=== PATIENT | female | born 1945 | race Caucasian/White ===

== ENCOUNTER 2019-08-30 09:31 | Inpatient (IN) | payer BC ==
[2019-08-15 12:32] VITALS: BMI 39.2
--- NOTE | 2019-08-30 07:58 | HP ---
Satellite [facility] - Chief Complaint Chief Complaint: right knee pain - Past Medical History Allergies/Adverse Reactions: Allergies Allergy/AdvReac Type Severity Reaction Status Date / Time Penicillins Allergy Severe Difficulty Verified 08/15/19 12:20 Breathing - Current Medications Current Medications: Home Medications Medication Instructions Recorded Aspirin [ASA -] 81 mg PO DAILY 08/15/19 Cholecalciferol (Vitamin D3) 2,000 unit PO DAILY 08/15/19 [Vitamin D3] Hydrochlorothiazide [Hctz -] 12.5 mg PO DAILY 08/15/19 Metoprolol Succinate [Toprol Xl -] 50 mg PO DAILY 08/15/19 Potassium Chloride [Klor-Con M20] 20 meq PO DAILY 08/15/19 Satellite Physical Exam - Physical Examination General Appearance: Well Nourished, Well Developed, Alert & Oriented x3 ENT: Clear Lung: Normal air movement Extremities: Other (right knee- + swelling, + ttp ,decr rom, nvi, xrays show grade 4 tricompartmental djd) Neurological: Intact, Alert, Oriented Satellite Impression/Plan - Impression/Plan Impression: right knee djd Operative Procedure: right jose tkr Date to be Performed: 08/30/19
[~2019-08-30 09:31] MED LIST: VANCOMYCIN 1,000 MG VIAL (RESTRICTED TO ID ONLY) IVPB ONE
[2019-08-30] MEDS ORDERED: BUPIVACAINE HCL/PF 0.5% (5MG/ML) 10 ML VIAL ONE ×2 (09:45→12:57)
[2019-08-30] MEDS ORDERED: CEFAZOLIN 3 GM in DEXTROSE 5%-WATER - 100 ML IVPB ONE (10:15)
[2019-08-30] MEDS ORDERED: CELECOXIB 200 MG CAPSULE PO ONE (10:15)
[2019-08-30] MEDS ORDERED: TRANEXAMIC ACID 1000 MG/10 ML VIAL IVPUSH ONE (10:15)
[2019-08-30] MEDS ORDERED: CELECOXIB 200 MG CAPSULE ONE (10:56)
[2019-08-30] MEDS ORDERED: ceFAZolin SODIUM 1 GM VIAL ONE ×2 (11:39→12:15)
[2019-08-30] MEDS ORDERED: SODIUM CHLORIDE 0.9% P/F 10 ML VIAL IJ ONE (11:43)
[2019-08-30] MEDS ORDERED: MIDAZOLAM HCL 2 MG/2 ML SINGLE DOSE VIAL ONE (11:43)
[2019-08-30] MEDS ORDERED: BUPIVACAINE LIPOSOME/PF (EXPAREL) 266 MG/20 ML VIAL ONE (11:43)
[2019-08-30] MEDS ORDERED: VANCOMYCIN 1,000 MG VIAL (RESTRICTED TO ID ONLY) ONE ×2 (12:15→14:48)
[2019-08-30] MEDS ORDERED: MAGNESIUM HYDROX 2400MG/30ML ORAL SUSPENSION 30 ML CUP PO PRN (13:00)
[2019-08-30] MEDS ORDERED: ONDANSETRON 4 MG/2 ML VIAL IVPUSH PRN (13:00)
[2019-08-30] MEDS ORDERED: MAG HYDROX/AL HYDROX/SIMETH 30 ML UNIT-DOSE CUP PO PRN (13:00)
[2019-08-30] MEDS ORDERED: LACTATED RINGERS SOLUTION 1,000 ML IV SCH (13:00)
[2019-08-30] MEDS ORDERED: TRANEXAMIC ACID 1000 MG/10 ML VIAL ONE (13:16)
[2019-08-30] MEDS ORDERED: PROPOFOL 20 ML ONE ×2 (13:18)
[2019-08-30] MEDS ORDERED: VANCOMYCIN 1,000 MG VIAL (RESTRICTED TO ID ONLY) IVPB ONE (14:50)
--- NOTE | 2019-08-30 15:23 | OP ---
Operative Note - Note: Operative Date: 08/30/19 (amelia) Pre-Operative Diagnosis: right knee djd Operation: right jose tkr Post-Operative Diagnosis: Same as Pre-op Surgeon: Erich Sanford Set Up Mechanic Heading Machines: Michael Henderson Anesthesiologist/RESERVOIR CARETAKER: Kota Owusu Anesthesia: Spinal, Local Specimens Removed: bone fragments Estimated Blood Loss (mls): 250
[2019-08-30] MEDS ORDERED: oxyCODONE HCL 5 MG TABLET PO PRN (16:10)
--- NOTE | 2019-08-30 17:10 | SPEC ---
DATE OF OPERATION: 08/30/2019 PREOPERATIVE DIAGNOSIS: Degenerative joint disease, right knee. POSTOPERATIVE DIAGNOSIS: Degenerative joint disease, right knee. PROCEDURE: Right total knee replacement with robotic-assisted navigation (Makoplasty). SURGICAL ATTENDING: Erich Sanford MD. SOLE TRIMMER: MAGGIE Zhang. ANESTHESIA: Regional and spinal. CLOSURE: A cemented total knee system with a 3 femur, 4 tibia, 11 TS polyethylene, 32 patella, number 1 Vicryl fascia, 0 and 2-0 subcutaneous, 3-0 Monocryl subcuticular with skin glue for skin, 4-0 undyed Vicryl for pin site. ESTIMATED BLOOD LOSS: Less than . COMPLICATIONS: None. CONDITION: To recovery room in stable condition. DESCRIPTION OF OPERATIVE PROCEDURE: Patient was taken to the operating room on August 30, 2019. Regional and general anesthesia was administered by the anesthesiologist. IV Kefzol and TXA were administered by the anesthesiologist. Well-padded pneumatic tourniquet was placed on the proximal thigh. The right lower extremity was prepped and draped in the usual sterile fashion. The leg was exsanguinated with an Esmarch bandage, and tourniquet was inflated to 275 mmHg. A 12 to 15-cm longitudinal midline incision was incised while centered over the patella. The dissection was carried down to the level of the extensor mechanism with sufficient flaps made to adequately perform the procedure. A medial parapatellar arthrotomy was then performed. We made a cuff of tissue on the patella for later closure. The patella was inverted, the knee was flexed up. The fat pad was excised. The subperiosteal dissection was on the anteromedial proximal tibia around towards the direction of the MCL. The ACL and the PCL were transected and debrided. The meniscal remnants of the medial and lateral meniscus were debrided and removed. This allowed the knee to be able to "be brought forward." The checkpoints were malleted into the tibia and into the femur. Two threaded pins were drilled anteroposteriorly proximal to the knee through the previous incision, through the anterior cortex, then just engaging the posterior cortex. To these pins was assembled the femoral navigation array. One handbreadth below the tibial tubercle, 2 stab incisions were used to drill 2 threaded pins in parallel fashion into the tibia, again through the anterior cortex and just engaging the posterior cortex. To these pins was fastened the tibial arrays. The knee was then registered with the navigation device with center of rotation of the hip, medial and lateral malleoli, both checkpoints, and multiple points on both the femur and the tibia to ensure excellent registration. The navigation device was directed off the "top of the bubbles" on both the femur and the tibia. The navigation passed within less than 0.5 mm to plan. The knee was then thoroughly inspected to remove all osteophytes both medially, laterally, and on the femur and the tibia, and whatever osteophytes were available for dissection. The knee was then taken to extension and to flexion, and stressed in both varus and valgus to assess flexion gaps. The virtual position of the components on the navigation device were then manipulated to optimize the position and to ensure equal gaps in both flexion and extension, and both medially and laterally. The robot was then brought into the field and was registered. The cuts were then made both on the femur and on the tibia as to plan. All osteophytes posteriorly were then removed as well. The gaps were then measured again in flexion and extension to be equal in both flexion and extension and medial and laterally. The femoral notch was then made, as we were doing a posterior stabilizing component, with the appropriate sized box. Trial reduction of the femur achieved excellent [id number] fit. A tibial baseplate of appropriate polyethylene thickness was "floated in the knee." It was ensured to be in the excellent position by navigation devices and was pinned in place. The knee was taken through a range of motion, and found to have excellent stability throughout flexion and extension. The patella was calibrated for thickness and osteotomized down to the appropriate level. The appropriate lollipop was used to drill the lug holes in the patella and the trial button was applied. The knee was taken through a range of motion and found to have excellent tracking of the patella, and patella from full extension to full flexion. Trial components were removed, the keel was punched and drilled, and a sclerotic bone on the tibia was drilled to help with cement interdigitation. The knee was thoroughly irrigated with the pulse antibiotic plant changer. The real components were then cemented in using monitored arrangement cement techniques with antibiotic cement, and pressurization and extension. After the cement was hardened, the knee was thoroughly inspected to remove any extra cement. The real polyethylene component was then clipped into place. Range of motion, stability, and tracking were as described earlier. The checkpoints and the pins were removed. The knee was thoroughly irrigated with antibiotic irrigation. Vancomycin powder was placed into the knee for antibiotic prophylaxis. The medial parapatellar arthrotomy was then closed using number 1 Vicryl interrupted suture. After closure of the deep layer, the knee was taken through a range of motion, and found to have excellent stability of the patella with no dislocation and no undue tension on the repair. The subcutaneous was pulse antibiotic irrigated, and was then closed with 2-0 Vicryl, 3-0 Monocryl subcuticular with the skin glue for the skin. The distal tibial pin site was irrigated thoroughly as well and then closed with 4-0 undyed Vicryl. A sterile Aquacel dressing was applied, followed by a Resendiz dressing. Tourniquet was deflated. Total tourniquet time was approximately 75 minutes. No complications. Patient was awakened from anesthesia and transferred to recovery room in stable condition. Postoperative x-rays revealed excellent position of the components. Laron [id number]
[2019-08-30] MEDS: oxyCODONE HCL 5 MG TABLET PO PRN (19:20)
[2019-08-30] MEDS: SENNOSIDES/DOCUSATE COMBO (SENNA PLUS) TABLET (UD) PO SCH (21:10)
[2019-08-30] MEDS: CEFAZOLIN 3 GM in DEXTROSE 5%-WATER - 100 ML IVPB SCH (21:10)
[2019-08-30] MEDS: ACETAMINOPHEN 325 MG TABLET (FP) PO PRN (21:11)
[2019-08-30] MEDS: KETOROLAC TROMETHAMINE 30 MG/1 ML VIAL IVPUSH PRN (23:03)
[2019-08-31] MEDS: CEFAZOLIN 3 GM in DEXTROSE 5%-WATER - 100 ML IVPB SCH (03:35)
[2019-08-31] MEDS: oxyCODONE HCL 5 MG TABLET PO PRN ×5 (05:16→21:44)
--- NOTE | 2019-08-31 07:18 | CONSULT ---
Consult - Past Medical History Cardio/Vascular: Yes: HTN. No: AFIB Pulmonary: No: Asthma Gastrointestinal: Yes: GERD - Alcohol/Substance Use Hx Alcohol Use: No (OCCASIONALLY) - Smoking History Smoking history: Never smoked Have you smoked in the past 12 months: No Home Medications - Allergies Allergies/Adverse Reactions: Allergies Allergy/AdvReac Type Severity Reaction Status Date / Time Penicillins Allergy Severe Difficulty Verified 08/15/19 12:20 Breathing - Home Medications Home Medications: Ambulatory Orders Aspirin [ASA -] 81 mg PO DAILY 08/15/19 Cholecalciferol (Vitamin D3) [Vitamin D3] 2,000 unit PO DAILY 08/15/19 Hydrochlorothiazide [Hctz -] 12.5 mg PO DAILY 08/15/19 Metoprolol Succinate [Toprol Xl -] 50 mg PO DAILY 08/15/19 Potassium Chloride [Klor-Con M20] 20 meq PO DAILY 08/15/19 Review of Systems - Review of Systems Cardiovascular: reports: No Symptoms Respiratory: reports: No Symptoms Gastrointestinal: reports: No Symptoms Musculoskeletal: reports: Extremity Pain, Joint Pain Physical Exam Vital Signs: Vital Signs Temperature 97.5 F L 08/31/19 06:00 Pulse Rate 72 08/31/19 06:00 Respiratory Rate 20 08/31/19 06:00 Blood Pressure 147/65 08/31/19 06:00 O2 Sat by Pulse Oximetry (%) 95 08/31/19 07:07 Cardiovascular: Yes: S1, S2 Respiratory: Yes: Regular, CTA Bilaterally Gastrointestinal: Yes: Normal Bowel Sounds, Soft. No: Tenderness Musculoskeletal: Yes: Joint Stiffness, Joint Swelling Wound/Incision: Yes: Dressing Dry and Intact Problem List - Problems (1) HTN (hypertension) Assessment/Plan: metoprolol and hctz monitor Code(s): I10 - ESSENTIAL (PRIMARY) HYPERTENSION (2) S/P knee replacement Assessment/Plan: Operative Date: 08/30/19 (amelia) Pre-Operative Diagnosis: right knee djd Operation: right jose tkr Post-Operative Diagnosis: Same as Pre-op Surgeon: Erihc Sanford Code(s): Z96.659 - PRESENCE OF UNSPECIFIED ARTIFICIAL KNEE JOINT
[2019-08-31] MEDS: ASPIRIN 325 MG TABLET PO SCH (08:05)
[2019-08-31 08:11] LABS: HEMATOCRIT 34.8 % (32.4-45.2); HEMOGLOBIN 11.7 GM/dl (10.7-15.3); MCHC 33.6 g/dl (32.0-36.0); MEAN CELL VOLUME 92.1 fl (80-96); MEAN PLT VOLUME 10.8 fl (7.5-11.1); PLATELET COUNT 187 K/MM3 (134-434); RBC 3.78 M/mm3 (3.60-5.2); WHITE BLOOD COUNT 10.4 K/mm3 (4.0-10.8)
[2019-08-31] MEDS: KETOROLAC TROMETHAMINE 30 MG/1 ML VIAL IVPUSH PRN (08:35)
--- NOTE | 2019-08-31 08:37 | PN ---
Progress Note (short form) - Note Progress Note: Ortho Pt seen and examined s/p right jose tkr pod #1. c/o pain in right knee. Selected Entries 08/31/19 06:00 Temperature 97.5 F L Pulse Rate 72 Respiratory 20 Rate Blood Pressure 147/65 Laboratory Tests 08/31/19 07:35 WBC 10.4 Hgb 11.7 Hct 34.8 Plt Count 187 dressing c/d/i, calf soft, nt rom 0-20, nvi a/p PT dvt ppx pain control d/c planning
[2019-08-31] MEDS: MULTIVITAMINS (DAILY MVI) TABLET (FP) PO SCH (09:24)
[2019-08-31] MEDS: SENNOSIDES/DOCUSATE COMBO (SENNA PLUS) TABLET (UD) PO SCH ×2 (09:24→21:44)
[2019-08-31] MEDS: POTASSIUM CHLORIDE TABS 20 MEQ TABLET.ER (FP) PO SCH (09:24)
[2019-08-31] MEDS: PANTOPRAZOLE 40 MG TABLET (FP) PO SCH (09:43)
[2019-08-31] MEDS: HYDROCHLOROTHIAZIDE 12.5 MG CAPSULE (FP) PO SCH (09:43)
--- NOTE | 2019-08-31 12:27 | PN ---
Progress Note (short form) - Note Progress Note: ANESTHESIA POSTOP 74 YO FEMALE POD #1 S/P RIGHT TKA Patient sitting in chair. Pain tolerable with medications. Tolerating PO VSS, Afebrile Continue current care. Encouraged active participation in PT and use of IS. No anesthetic complications.
[2019-09-01] MEDS: oxyCODONE HCL 5 MG TABLET PO PRN (03:47)
[2019-09-01] MEDS: KETOROLAC TROMETHAMINE 30 MG/1 ML VIAL IVPUSH PRN ×2 (06:30→09:00)
[2019-09-01] MEDS: ACETAMINOPHEN 325 MG TABLET (FP) PO PRN (06:31)
[2019-09-01] MEDS: ASPIRIN 325 MG TABLET PO SCH (08:19)
[2019-09-01 08:23] LABS: HEMOGLOBIN 11.6 GM/dl (10.7-15.3); MCH 31.1 pg (25.7-33.7); MEAN CELL VOLUME 91.4 fl (80-96); MEAN PLT VOLUME 11.1 fl (7.5-11.1); PLATELET COUNT 199 K/MM3 (134-434); RBC 3.72 M/mm3 (3.60-5.2); RDW 11.9 % (11.6-15.6)
[2019-09-01 08:24] LABS: ALBUMIN 2.8 g/dl (3.4-5.0); CALCIUM 8.7 mg/dl (8.5-10); CREATININE 0.6 mg/dl (0.55-1.3); POTASSIUM 3.7 mmol/L (3.5-5.1); TOT PROT 5.9 g/dl (6.4-8.2)
--- NOTE | 2019-09-01 08:38 | PN ---
Progress Note (short form) - Note Progress Note: Ortho Pt seen and examined s/p right jose tkr pod #2. c/o pain in right knee. Hesitant to move due to the pain. Selected Entries 09/01/19 06:00 Temperature 99.4 F Pulse Rate 90 Respiratory 20 Rate Blood Pressure 148/62 Laboratory Tests 09/01/19 07:34 WBC 10.0 Hgb 11.6 Hct 34.0 Plt Count 199 dressing c/d/i, calf soft, nt rom 0-20, nvi a/p Encouraged pt importance of ROM and PT PT dvt ppx pain control d/c planning to rehab
[2019-09-01] MEDS: MULTIVITAMINS (DAILY MVI) TABLET (FP) PO SCH (09:00)
[2019-09-01] MEDS: SENNOSIDES/DOCUSATE COMBO (SENNA PLUS) TABLET (UD) PO SCH (09:00)
[2019-09-01] MEDS: POTASSIUM CHLORIDE TABS 20 MEQ TABLET.ER (FP) PO SCH (09:00)
[2019-09-01] MEDS: PANTOPRAZOLE 40 MG TABLET (FP) PO SCH (09:00)
[2019-09-01] MEDS: HYDROCHLOROTHIAZIDE 12.5 MG CAPSULE (FP) PO SCH (09:00)
--- NOTE | 2019-09-01 10:56 | DS ---
Physical Examination Vital Signs: Vital Signs Temperature 99.4 F 09/01/19 06:00 Pulse Rate 90 09/01/19 06:00 Respiratory Rate 20 09/01/19 06:00 Blood Pressure 148/62 09/01/19 06:00 O2 Sat by Pulse Oximetry (%) 93 L 09/01/19 06:00 Labs: CBC, BMP 09/01/19 07:34 09/01/19 07:34 Discharge Summary Problems reviewed: Yes Reason For Visit: OSTEOARTHRITIS Current Active Problems HTN (hypertension) (Acute) S/P knee replacement (Acute) Procedures: Principal: right tkr Hospital Course: admitted for elective right jose tkr, post-op per protocol, stable for d/c Condition: Good - Instructions Diet, Activity, Other Instructions: Post-op Instructions-Total Knee Replacement Call the office for a follow-up appointment in 1 week - [phone] Aspirin 325mg daily for 6 weeks. Pain medication was sent into your pharmacy. Apply Graduated Compression Stockings (TEDs) to both lower extremities- remove daily for hygiene ONLY Apply Sequential Compression Device (SCDs) to both Lower extremities remove for PT and hygiene ONLY Apply cold packs to affected area for 15 minutes every 2 hours. Physical Therapist will come to your home for the first 5 days. You will be set up with outpatient PT at your first post-operative visit. Patient may ambulate as tolerated-encourage self care (at least every 2-3 hours while awake) with walker or cane Maintain Aquacel (waterproof) dressing to operative wound (will be removed by surgeon at first office visit) Shower with Aquacel dressing in place-if Aquacel integrity compromised, remove and apply dry sterile dressing and notify Orthopedist. DO NOT SHOWER unless Orthopedists approves without Aquacel dressing CONTACT THE OFFICE FOR ANY CHANGE IN YOUR CONDITION (for example-fever greater than 102 degrees, excessive bleeding from operative site, purulent drainage, severe swelling or pain) GO TO THE EMERGENCY ROOM IF THERE IS A MEDICAL EMERGENCY Knee Precautions: * Keep a rolled towel under affected heel while in bed or chair (to keep knee in extension) * Keep affected leg elevated except during mealtimes * DO NOT PLACE PILLOW UNDER AFFECTED KNEE * If you have any questions, please do not hesitate to call the office - [phone]. Referrals: Erich Sanford MD [Staff Physician] - - Home Medications Comprehensive Discharge Medication List: Ambulatory Orders Cholecalciferol (Vitamin D3) [Vitamin D3] 2,000 unit PO DAILY 08/15/19 Hydrochlorothiazide [Hctz -] 12.5 mg PO DAILY 08/15/19 Metoprolol Succinate [Toprol XL -] 50 mg PO DAILY 08/15/19 Potassium Chloride [Klor-Con M20] 20 meq PO DAILY 08/15/19 Aspirin [ASA -] 325 mg PO DAILY@0800 tablet 09/01/19 oxyCODONE HCL [Roxicodone -] 5 mg PO Q4H PRN tablet MDD 8 09/01/19
[2019-09-01 11:58] VITALS: BP 118/50; PULSE 73; TEMP 97.7
--- NOTE | 2019-09-02 16:38 | PATH ---
Surgical Pathology Report Patient Name: RENY FERGUSON Med. Rec. #: [id number] /Age/Gender: 1945 (Age: 74) / F Account: [id number] Location: [facility] MED-SURG Taken: 08/30/2019 Received: 08/30/2019 Reported: 09/02/2019 Physicians: Erich Sanford M.D. Specimen(s) Received RIGHT KNEE BONES Clinical History Osteoarthritis right knee Final Diagnosis RIGHT KNEE BONES, RESECTION: DEGENERATIVE JOINT DISEASE, RIGHT KNEE. Electronically Signed Justin Ward M.D. Gross Description Received in formalin labeled "right knee bones," is an 11.0 x 8.5 x 1.8 cm aggregate of multiple saldivar-yellow, irregular portions of bone and soft tissue. The tibial plateau is 8.0 x 5.3 x 1.7 cm. There are areas of eburnation identified. The articular surfaces are saldivar-brown and diffusely granular. The underlying trabecular bone is yellow and hard. Banding Machine Operator sections are submitted in one cassette, following decalcification. /09/01/2019 [facility]09/01/2019
== END 2019-09-01 12:50 | DRG 470 ==
LOC: FASUSAT 09:31 → FM/S 16:49 → FASUSAT 08-31 09:27
PROVIDERS: ADMIT Orthopaedic Surgery; ATTEND Orthopaedic Surgery
PROC: 8E0Y0CZ Robotic Assisted Procedure of Lower Extremity, Open Approach (ICD-10-PCS; 2019-08-30)
PROC: 0SRC069 Replacement of Right Knee Joint with Oxidized Zirconium on Polyethylene Synthetic Substitute, Cemented, Open Approach (ICD-10-PCS; principal; 2019-08-30 13:31)
DX: M17.11 Unilateral primary osteoarthritis, right knee (principal); I10 Essential (primary) hypertension; K21.9 Gastro-esophageal reflux disease without esophagitis
CPT/HCPCS: 36415; 73560-TC-RT-FY; 80053; 80061; 83036; 85027; 88304-TC; 88311-TC; 94760; 97116-GP; 97163-GP

== ENCOUNTER 2021-06-18 09:16 | Day surgery (SDC) | payer BC ==
[2021-06-11 09:58] VITALS: BMI 39.7
[2021-06-18] MEDS ORDERED: TRANEXAMIC ACID 1000 MG/10 ML VIAL IVPUSH ONE (10:01)
[2021-06-18] MEDS ORDERED: CELECOXIB 200 MG CAPSULE PO ONE (10:01)
[2021-06-18] MEDS ORDERED: CEFAZOLIN 2 GM in DEXTROSE 5%-WATER - 50 ML IVPB ONE (10:01)
[2021-06-18] MEDS ORDERED: MIDAZOLAM HCL 2 MG/2 ML SINGLE DOSE VIAL ONE ×2 (10:55→13:21)
[2021-06-18] MEDS ORDERED: BUPIVACAINE HCL/PF 0.5% (5MG/ML) 10 ML VIAL ONE ×2 (10:56→12:00)
[2021-06-18] MEDS ORDERED: ROPIVACAINE HCL 0.5% 30ML VIAL ONE (10:56)
[2021-06-18] MEDS ORDERED: BUPIVACAINE LIPOSOME/PF (EXPAREL) 266 MG/20 ML VIAL ONE (10:56)
[2021-06-18] MEDS ORDERED: SODIUM CHLORIDE 0.9% P/F 10 ML VIAL IJ ONE (10:56)
[2021-06-18] MEDS ORDERED: VANCOMYCIN 1,000 MG VIAL (RESTRICTED TO ID ONLY) ONE (11:46)
[2021-06-18] MEDS ORDERED: ceFAZolin SODIUM 1 GM VIAL ONE ×2 (11:46→19:50)
[2021-06-18] MEDS ORDERED: LACTATED RINGERS SOLUTION 1,000 ML IV SCH ×2 (12:00→12:15)
[2021-06-18] MEDS ORDERED: MAGNESIUM HYDROX 2400MG/30ML ORAL SUSPENSION 30 ML CUP PO PRN (12:04)
[2021-06-18] MEDS ORDERED: ONDANSETRON 4 MG/2 ML VIAL IVPUSH PRN (12:04)
[2021-06-18] MEDS ORDERED: MAG HYDROX/AL HYDROX/SIMETH 30 ML UNIT-DOSE CUP PO PRN (12:04)
[2021-06-18] MEDS ORDERED: PROPOFOL 20 ML ONE (13:21)
[2021-06-18] MEDS ORDERED: ACETAMINOPHEN 1000 MG/100 ML VIAL IVPB ONE (14:00)
[2021-06-18] MEDS ORDERED: ACETAMINOPHEN INJECTION 100 ML IVPB ONE (14:30)
[2021-06-18] MEDS ORDERED: DEXTROSE 5%-WATER - 50 ML IVPB ONE (19:50)
[2021-06-18] MEDS: oxyCODONE HCL 5 MG TABLET PO PRN ×2 (19:56→21:58)
[2021-06-18] MEDS: CEFAZOLIN 2 GM in DEXTROSE 5%-WATER - 50 ML IVPB SCH (19:56)
[2021-06-18] MEDS: ACETAMINOPHEN 500 MG TABLET (FP) PO SCH (20:01)
[2021-06-18] MEDS: SENNOSIDES/DOCUSATE COMBO (SENNA PLUS) TABLET (UD) PO SCH (21:58)
[2021-06-19] MEDS ORDERED: ceFAZolin SODIUM 1 GM VIAL ONE (02:32)
[2021-06-19] MEDS ORDERED: DEXTROSE 5%-WATER - 50 ML IVPB ONE (02:33)
[2021-06-19] MEDS: ACETAMINOPHEN 500 MG TABLET (FP) PO SCH ×4 (02:41→21:18)
[2021-06-19] MEDS: oxyCODONE HCL 5 MG TABLET PO PRN ×3 (02:41→21:19)
[2021-06-19] MEDS: CEFAZOLIN 2 GM in DEXTROSE 5%-WATER - 50 ML IVPB SCH (03:13)
[2021-06-19 08:32] LABS: HEMOGLOBIN 11.7 GM/dl (10.7-15.3); WHITE BLOOD COUNT 13.4 K/mm3 (4.0-10.8)
[2021-06-19 08:37] LABS: HEMATOCRIT 34.1 % (32.4-45.2); MCH 30.4 pg (25.7-33.7); MCHC 34.2 g/dl (32.0-36.0); MEAN CELL VOLUME 88.8 fl (80-96); MEAN PLT VOLUME 10.8 fl (7.5-11.1); PLATELET COUNT 263 10^3/uL (134-434); RBC 3.84 M/mm3 (3.60-5.2); RDW 11.9 % (11.6-15.6)
[2021-06-19] MEDS: ASPIRIN 325 MG TABLET PO SCH (09:29)
[2021-06-19] MEDS: SENNOSIDES/DOCUSATE COMBO (SENNA PLUS) TABLET (UD) PO SCH ×2 (09:31→21:18)
[2021-06-19] MEDS: POTASSIUM CHLORIDE TABS 20 MEQ TABLET.ER (FP) PO SCH (09:33)
[2021-06-19] MEDS: HYDROCHLOROTHIAZIDE 12.5 MG CAPSULE (FP) PO SCH (09:33)
[2021-06-19] MEDS: MULTIVITAMINS (DAILY MVI) TABLET (FP) PO SCH (09:34)
[2021-06-19] MEDS: PANTOPRAZOLE 40 MG TABLET PO SCH (09:34)
[2021-06-19] MEDS: KETOROLAC TROMETHAMINE 30 MG/1 ML VIAL IVPUSH SCH ×3 (10:04→22:09)
[2021-06-20] MEDS: ACETAMINOPHEN 500 MG TABLET (FP) PO SCH ×4 (03:00→22:00)
[2021-06-20] MEDS ORDERED: LOCK ITEM NR ONE (03:52)
[2021-06-20] MEDS: KETOROLAC TROMETHAMINE 30 MG/1 ML VIAL IVPUSH SCH (04:09)
[2021-06-20] MEDS: oxyCODONE HCL 5 MG TABLET PO PRN ×4 (05:50→19:16)
[2021-06-20 08:21] LABS: HEMATOCRIT 31.4 % (32.4-45.2); HEMOGLOBIN 10.4 GM/dl (10.7-15.3); MCH 29.8 pg (25.7-33.7); MCHC 33.2 g/dl (32.0-36.0); PLATELET COUNT 186 10^3/uL (134-434); RBC 3.49 M/mm3 (3.60-5.2); RDW 12.4 % (11.6-15.6); WHITE BLOOD COUNT 8.4 K/mm3 (4.0-10.8)
[2021-06-20] MEDS: PANTOPRAZOLE 40 MG TABLET PO SCH (09:17)
[2021-06-20] MEDS: ASPIRIN 325 MG TABLET PO SCH (09:17)
[2021-06-20] MEDS: SENNOSIDES/DOCUSATE COMBO (SENNA PLUS) TABLET (UD) PO SCH ×2 (09:18→22:02)
[2021-06-20] MEDS: POTASSIUM CHLORIDE TABS 20 MEQ TABLET.ER (FP) PO SCH (09:18)
[2021-06-20] MEDS: HYDROCHLOROTHIAZIDE 12.5 MG CAPSULE (FP) PO SCH (09:18)
[2021-06-20] MEDS: MULTIVITAMINS (DAILY MVI) TABLET (FP) PO SCH (09:18)
[2021-06-21] MEDS: ACETAMINOPHEN 500 MG TABLET (FP) PO SCH ×3 (02:00→15:22)
[2021-06-21] MEDS: ASPIRIN 325 MG TABLET PO SCH (08:33)
[2021-06-21] MEDS: oxyCODONE HCL 5 MG TABLET PO PRN (08:56)
[2021-06-21] MEDS: MULTIVITAMINS (DAILY MVI) TABLET (FP) PO SCH (09:00)
[2021-06-21] MEDS: PANTOPRAZOLE 40 MG TABLET PO SCH (09:00)
[2021-06-21] MEDS: SENNOSIDES/DOCUSATE COMBO (SENNA PLUS) TABLET (UD) PO SCH (09:01)
[2021-06-21] MEDS: POTASSIUM CHLORIDE TABS 20 MEQ TABLET.ER (FP) PO SCH (09:01)
[2021-06-21] MEDS: HYDROCHLOROTHIAZIDE 12.5 MG CAPSULE (FP) PO SCH (11:19)
[2021-06-21] MEDS ORDERED: oxyCODONE HCL 5 MG TABLET PO PRN ×2 (13:41)
[2021-06-21 14:15] VITALS: BP 130/59; PULSE 85; TEMP 98
== END 2021-06-21 16:07 | disposition home health service (06) ==
LOC: FASUSAT 09:16 → FM/S 10:31 → FASUSAT 06-21 16:07
PROVIDERS: ATTEND Orthopaedic Surgery
PROC: 8E0YXBZ Computer Assisted Procedure of Lower Extremity (ICD-10-PCS; 2021-06-18)
PROC: 8E0Y0CZ Robotic Assisted Procedure of Lower Extremity, Open Approach (ICD-10-PCS; 2021-06-18)
PROC: 0SRD0J9 Replacement of Left Knee Joint with Synthetic Substitute, Cemented, Open Approach (ICD-10-PCS; principal; 2021-06-18 12:26)
DX: M17.12 Unilateral primary osteoarthritis, left knee (principal); I10 Essential (primary) hypertension; E78.5 Hyperlipidemia, unspecified; K21.9 Gastro-esophageal reflux disease without esophagitis; Z88.0 Allergy status to penicillin
CPT/HCPCS: 20985; 27447; C1776; S2900; 36415; 73560-TC-LT-FY; 82962; 85027; 94010; 94760; 97116-GP; 97162-GP; C9803; J0131; U0003; U0005